=== PATIENT | male | born 1975 | race Caucasian/White ===

== ENCOUNTER 2020-03-10 00:03 | Emergency (ER) | payer SELFPAY ==
[2020-03-10 00:58] LABS: Amphetamine Detected (NotDetected); Barbiturates Screen Not Detected (NotDetected); Benzodiazepine Screen Not Detected (NotDetected); Cocaine Metabolite Screen Detected (NotDetected); Methadone Not Detected (NotDetected); Methamphetamine Detected (NotDetected); Opiate Screen Not Detected (NotDetected); Phencyclidine (PCP) Not Detected (NotDetected); THC/Cannabinoid Screen Not Detected (NotDetected); Tricyclic Screen Not Detected (NotDetected)
[2020-03-10 00:59] LABS: Medtox Control Line Valid? VALID (VALID); Oxycodone Screen Not Detected (NotDetected)
[2020-03-10 01:27] LABS: #Basophils 0.1 thou/uL (0.0-0.2); #Eosinphils 0.1 thou/uL (0.0-0.7); %Eosinophils 0.9 % (0.0-10.0)
[2020-03-10 01:43] LABS: #Lymphocytes 1.8 thou/uL (1.20-3.40); #Monocytes 0.6 thou/uL (0.11-0.59); #Neutrophils 4.7 thou/uL (1.40-6.50); %Basophils 1.6 % (0.0-1.0); %Monocytes 8.7 % (0.0-10.0); %Neutrophils 63.8 % (42.0-75.0); Hemoglobin 14.4 g/dL (14.0-18.0); Mean Corpuscular HGB CONC 31.8 g/dL (32.0-36.0); Mean Corpuscular Hemoglobin 28.8 pg (27.0-31.0); Mean Corpuscular Volume 90.7 fL (78.0-98.0); Mean Platelet Volume 8.9 fL (7.4-10.4); Platelet Count 208 thou/uL (130-400); RBC Distribution Width 12.4 % (11.5-14.5); Red Blood Cell (RBC) Count 5.02 mill/uL (4.70-6.10); White Blood Cell (WBC) Count 7.3 thou/uL (4.8-10.8)
[2020-03-10 01:46] LABS: Acetaminophen Less than 6.0 mcg/mL (10.0-30.0); Alcohol Less than 10 mg/dL (Less than 10); Salicylate Less than 8.0 mg/dL (15.0-30.0)
[2020-03-10 01:48] LABS: ALT (SGPT) 36 U/L (8-55); AST (SGOT) 44 U/L (5-34); Albumin 4.2 g/dL (3.5-5.0); Alkaline Phosphatase 69 U/L (40-110); Anion Gap 22 mmol/L (10-20); BUN (Urea Nitrogen) 21 mg/dL (8.9-20.6); Bilirubin, Total 0.7 mg/dL (0.2-1.2); CK (CPK) 809 U/L (30-200); Calc. Creatinine Clearance 0 mL/min (70-130); Calcium 8.9 mg/dL (7.8-10.44); Carbon Dioxide 20 mmol/L (22-29); Chloride 100 mmol/L (98-107); Estimated GFR-MDRD 69; Globulin 3.4 g/dL (2.4-3.5); Glucose 64 mg/dL (70-105); Potassium 4.3 mmol/L (3.5-5.1); Protein, Total 7.6 g/dL (6.0-8.3); Sodium 138 mmol/L (136-145)
[2020-03-10] MEDS ORDERED: Acetaminophen 325 MG TAB ONE (05:52)
[2020-03-10] MEDS ORDERED: Sodium Chloride 0.9% 1,000 ML ONE (06:22)
== END 2020-03-10 19:37 ==
LOC: MADERS 00:03
DX: R45.851 Suicidal ideations (principal); F32.9 Major depressive disorder, single episode, unspecified; F19.10 Other psychoactive substance abuse, uncomplicated; I48.91 Unspecified atrial fibrillation; E03.9 Hypothyroidism, unspecified; F17.210 Nicotine dependence, cigarettes, uncomplicated
CPT/HCPCS: 80053; 80306; 80307; 82550; 84443; 85025; 99285; J7050

== ENCOUNTER 2020-09-04 13:38 | Emergency (ER) | payer SELFPAY ==
[2020-09-04] MEDS ORDERED: Acetaminophen/Codeine 30-300mg Tablet ONE (14:35)
[2020-09-04] MEDS ORDERED: Sulfameth/Trimethoprim DS 800-160mg TAB ONE (14:35)
== END 2020-09-04 14:41 ==
LOC: MADERS 13:38
DX: L02.31 Cutaneous abscess of buttock (principal); I48.91 Unspecified atrial fibrillation; E03.9 Hypothyroidism, unspecified; F17.220 Nicotine dependence, chewing tobacco, uncomplicated
CPT/HCPCS: 99283

== ENCOUNTER → 2025-04-25 | Day surgery (SDC) | payer OTHER ==
[~2025-04-25] MED LIST: Rabies Vaccine Human 2.5 UNITS VIAL ONE
== END ==
LOC: MADER/OP 11:17
PROVIDERS: ATTEND Student in an Organized Health Care Education/Training Program
DX: Z29.14 Encounter for prophylactic rabies immune globulin (principal)
CPT/HCPCS: 90675